=== PATIENT | male | born 1985 | race Caucasian/White ===

== ENCOUNTER 2016-07-12 20:07 | Emergency (ER) | payer MEDICAID ==
[2016-07-12] MEDS ORDERED: oxyCODONE/ACET 5/325 Prepack 4 PO STA (21:03)
[2016-07-12] MEDS ORDERED: HYDROmorphone 1 MG/ML SYRINGE IM STA (21:03)
[2016-07-12] MEDS ORDERED: predniSONE 20 MG TABLET PO STA (21:05)
[2016-07-12] MEDS ORDERED: predniSONE 20 MG TABLET ONE (21:12)
[2016-07-12] MEDS ORDERED: HYDROmorphone 1 MG/ML SYRINGE ONE (21:12)
[2016-07-12] MEDS ORDERED: oxyCODONE/ACET 5/325 Prepack 4 PO ONE (21:19)
== END 2016-07-12 21:26 | disposition home or self-care (01) ==
DX: M54.12 Radiculopathy, cervical region (principal); R03.0 Elevated blood-pressure reading, without diagnosis of hypertension; F17.200 Nicotine dependence, unspecified, uncomplicated
CPT/HCPCS: 96372; 99283; J1170; J7512

== ENCOUNTER 2019-04-16 10:05 | Emergency (ER) | payer MEDICAID ==
[2019-04-16 10:12] VITALS: BP 123/77
--- NOTE | 2019-04-16 11:09 | XRAY Report ---
Reason: right hand injury Procedure Date: 04/16/2019 Accession Number: [id number] / [id number] Procedure: XR - Hand 3 View RT CPT Code: FULL RESULT: EXAM: RIGHT HAND RADIOGRAPHY EXAM DATE: 04/16/2019 10:31 AM. CLINICAL HISTORY: Right hand injury. COMPARISON: None. TECHNIQUE: 3 views. FINDINGS: Bones: Mildly comminuted right fifth metacarpal neck fracture with 30 degrees of volar angulation Joints: Normal. No subluxations. Soft Tissues: Mild dorsal medial right hand swelling. IMPRESSION: 1. Mildly comminuted right fifth metacarpal neck fracture with 30 degrees of volar angulation. 2. No dislocation. 3. Mild dorsomedial right hand swelling. RADIA
--- NOTE | 2019-04-16 11:14 | ED Physician Documentation ---
PD HPI UPPER EXT INJURY - Stated complaint Stated Complaint: RT HAND PX/ INJ - Chief complaint Chief Complaint: Trauma Ext - History obtained from History obtained from: Patient, Family - History of Present Illness Location: Right, Hand Type of injury: Fall Where injury occurred: Home Timing - onset: How many hours ago (2) Timing - duration: Hours (2) Timing - details: Abrupt onset, Still present Improved by: Rest, Immobilization Worsened by: Moving, Palpating Associated symptoms: Swelling Contributing factors: No: Anticoagulated Similar symptoms before: Has not had sx before Recently seen: Not recently seen - Additonal information Additional information: 34-year-old male had a fall this morning and fell onto his right hand injuring the knuckle of the right fifth. He has some swelling and pain associated with this. Review of Systems Constitutional: denies: Fever Respiratory: denies: Cough GI: denies: Vomiting, Diarrhea Musculoskeletal: reports: Extremity pain, Joint pain, Joint swelling Neurologic: denies: Generalized weakness, Focal weakness, Numbness PD PAST MEDICAL HISTORY - Past Medical History Past Medical History: Yes Other Past Medical History: Chronic neck pain - Past Surgical History Past Surgical History: Yes Ortho: Rotator cuff repair - Present Medications Home Medications: Ambulatory Orders Medication Instructions Recorded Confirmed oxyCODONE [Roxicodone] 5 mg PO BID 04/16/19 04/16/19 - Allergies Allergies/Adverse Reactions: Allergies Allergy/AdvReac Type Severity Reaction Status Date / Time No Known Drug Allergies Allergy Verified 04/16/19 10:09 - Social History Does the pt smoke?: Yes Smoking Status: Current every day smoker Does the pt drink ETOH?: No Does the pt have substance abuse?: No - Immunizations Immunizations are current?: Yes - POLST Patient has POLST: Yes PD ED PE NORMAL - Vitals Vital signs reviewed: Yes (normal ) - General General: Alert and oriented X 3, No acute distress, Well developed/nourished - HEENT HEENT: Atraumatic, PERRL, EOMI - Respiratory Respiratory: No respiratory distress - Derm Derm: Normal color, Warm and dry, No rash - Extremities Extremities: Other (There is swelling and point tenderness to the right 5th distal metacarpal. distal n/v intact. ) - Neuro Neuro: Alert and oriented X 3, operator 2-12 intact, No motor deficit, No sensory deficit, Normal speech Eye Opening: Spontaneous Motor: Obeys Commands Verbal: Oriented GCS Score: 15 - Psych Psych: Normal mood, Normal affect Results - Vitals Vitals: Vital Signs - 24 hr 04/16/19 10:09 Temperature 36.8 C Heart Rate 85 Respiratory 16 Rate Blood Pressure 123/77 O2 Saturation 100 Oxygen O2 Source Room air - Rads (name of study) hand Radiology: Prelim report reviewed (Impression: 1. Mildly comminuted right fifth metacarpal neck fracture with 30 degrees of volar angulation. 2. No dislocation. 3. Mild posterior medial right hand swelling.), EMP read indepedently, See rad report Procedures - Splint (location) right hand Splint applied by: Tech Type of splint: Fiberglass, Ulnar gutter Other: Patient tolerated well, No complications, Neurovascular intact, Good alignment PD MEDICAL DECISION MAKING - ED course Complexity details: reviewed results, re-evaluated patient, considered differential, d/w patient, d/w family ED course: 34-year-old male with 1/5 metacarpal fracture is placed into an ulnar ulnar gutter splint and will follow-up with orthopedics. Departure - Departure Disposition: 01 Home, Self Care Clinical Impression: Mairaer's metacarpal fracture, neck, closed Qualifiers: Encounter type: initial encounter Qualified Code(s): S62.339A - Displaced fracture of neck of unspecified metacarpal bone, initial encounter for closed fracture Condition: Stable Instructions: ED Ellyn Jaylin Follow-Up: [facility] [Provider Group]
== END 2019-04-16 11:44 | disposition home or self-care (01) ==
LOC: ED 10:05
DX: F17.200 Nicotine dependence, unspecified, uncomplicated (principal); S62.626A Displaced fracture of middle phalanx of right little finger, initial encounter for closed fracture; W19.XXXA Unspecified fall, initial encounter; W22.8XXA Striking against or struck by other objects, initial encounter; Y92.009 Unspecified place in unspecified non-institutional (private) residence as the place of occurrence of the external cause
CPT/HCPCS: 29125; 99282; 99283

== ENCOUNTER 2019-09-05 13:17 | Outpatient (CLI) | payer SELFPAY | END 2019-09-05 13:18 | disposition home or self-care (01) | LOC: COV 13:17 | PROVIDERS: ATTEND Family Medicine | DX: R05 Cough (principal); R50.9 Fever, unspecified; Z20.828 Contact with and (suspected) exposure to other viral communicable diseases | CPT/HCPCS: 81599 ==

== ENCOUNTER 2021-01-06 15:17 | Emergency (ER) | payer SELFPAY ==
--- NOTE | 2021-01-06 15:57 | XRAY Report ---
PROCEDURE: Foot 3 View LT INDICATIONS: Trauma TECHNIQUE: 3 views of the foot were acquired. COMPARISON: None FINDINGS: Bones: No fractures or dislocations. No suspicious bony lesions. Soft tissues: No tibiotalar joint effusion. Achilles tendon appears normal. IMPRESSION: No visualized acute fracture or dislocation. However, occult injury cannot be excluded. Recommend kaylin rt interval imaging follow-up in 7-10 days as clinically indicated for additional evaluation. Reviewed by: Dotty Zuleta MD on 01/06/2021 3:55 PM PDT Approved by: Dotty Zuleta MD on 01/06/2021 3:55 PM PDT Station ID: [id number]
--- NOTE | 2021-01-06 17:34 | ED Physician Documentation ---
PD HPI LOWER EXT INJURY - Stated complaint Stated Complaint: LEFT TOE PX - Chief complaint Chief Complaint: Ext Problem - History obtained from History obtained from: Patient - History of Present Illness PD HPI LOW EXT INJURY LOCATION: Left, Toe (great) Type of injury: Blunt / blow (she stepped on a toy and felt pain at base of great toe.) Timing - onset: Today Associated symptoms: Swelling (near base of toe.). No: Weakness, Numbness Review of Systems Skin: denies: Abrasion (s), Laceration (s) Neurologic: denies: Focal weakness, Numbness PD PAST MEDICAL HISTORY - Past Medical History Past Medical History: No - Past Surgical History Past Surgical History: Yes Ortho: Rotator cuff repair - Present Medications Home Medications: Ambulatory Orders Medication Instructions Recorded Confirmed oxyCODONE [Roxicodone] 5 mg PO BID 04/16/19 04/16/19 - Allergies Allergies/Adverse Reactions: Allergies Allergy/AdvReac Type Severity Reaction Status Date / Time No Known Drug Allergies Allergy Verified 01/06/21 15:29 - Social History Does the pt smoke?: Yes Smoking Status: Current every day smoker Does the pt drink ETOH?: No Does the pt have substance abuse?: No - Immunizations Immunizations are current?: Yes - POLST Patient has POLST: Yes PD ED PE NORMAL - Vitals Vital signs reviewed: Yes - General General: Alert and oriented X 3, No acute distress, Well developed/nourished - Derm Derm: Normal color, Warm and dry - Neuro Neuro: No motor deficit, No sensory deficit Results - Vitals Vitals: Oxygen O2 Source Room air - Rads (name of study) left foot Radiology: Prelim report reviewed (no fractures), See rad report PD MEDICAL DECISION MAKING - ED course Complexity details: reviewed results, considered differential, d/w patient Departure - Departure Disposition: 01 Home, Self Care Clinical Impression: Sprain of great toe of left foot Qualifiers: Encounter type: initial encounter Qualified Code(s): S93.502A - Unspecified sprain of left great toe, initial encounter Condition: Stable Record reviewed to determine appropriate education?: Yes Instructions: ED Sprain Foot Comments: So theNo fractures on x-ray. Presume a sprain and bruising of the toe. Tylenol or ibuprofen as needed for pains. Activity as tolerated. Firm soled shoe may be more helpful to provide support. I would anticipate improvement over the next several days or so. Recheck if persistent or other problems. Discharge Date/Time: 01/06/21 17:49
[2021-01-06 17:50] VITALS: BP 128/80
== END 2021-01-06 17:49 | disposition home or self-care (01) ==
LOC: ED 15:17
DX: S93.502A Unspecified sprain of left great toe, initial encounter (principal); W22.8XXA Striking against or struck by other objects, initial encounter; F17.200 Nicotine dependence, unspecified, uncomplicated
CPT/HCPCS: 99282; 99283

== ENCOUNTER 2021-06-07 07:09 | Outpatient (CLI) | payer SELFPAY | END 2021-06-07 07:10 | disposition EMS.NT | LOC: EMS 07:09 | DX: Z04.1 Encounter for examination and observation following transport accident (principal) ==

== ENCOUNTER 2021-06-07 10:14 | Emergency (ER) | payer OTHER ==
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
[2021-06-07] MEDS ORDERED: ACETAMINOPHEN 325 MG TABLET PO STA (11:08)
[2021-06-07] MEDS ORDERED: IBUPROFEN 600 MG TABLET PO STA (11:08)
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
[2021-06-07] MEDS ORDERED: HYDROcod/ACETAM 5/325 MG TABLET PO STA (11:31)
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
[2021-06-07 12:06] VITALS: BP 116/74
== END 2021-06-07 12:06 | disposition home or self-care (01) ==
LOC: ED 10:14
DX: S01.01XA Laceration without foreign body of scalp, initial encounter (principal); S62.363A Nondisplaced fracture of neck of third metacarpal bone, left hand, initial encounter for closed fracture; S16.1XXA Strain of muscle, fascia and tendon at neck level, initial encounter; V47.0XXA Car driver injured in collision with fixed or stationary object in nontraffic accident, initial encounter; F17.200 Nicotine dependence, unspecified, uncomplicated
CPT/HCPCS: 12002; 29125; 72125; 73110; 73130; 99283; 99284; A9270

== ENCOUNTER 2021-06-24 14:00 | Outpatient (CLI) | payer OTHER ==
--- NOTE | 2021-06-24 19:57 | XRAY Report ---
PROCEDURE: Hand 3 View LT INDICATIONS: L HAND PX TECHNIQUE: 3 views of the hand(s) acquired. COMPARISON: Hand and wrist x-ray 06/07/2021 FINDINGS: Bones: There is a stable appearance of distal third metacarpal fracture. Alignment is unchanged. No s uspicious bony lesions. Soft tissues: No suspicious soft tissue calcifications. IMPRESSION: Stable distal third metacarpal fracture. Reviewed by: Dotty Zuleta MD on 06/24/2021 7:55 PM [facility] Approved by: Dotty Zuleta MD on 06/24/2021 7:55 PM PST Station ID: [id number]
== END 2021-06-24 23:59 | disposition home or self-care (01) ==
LOC: DI.N 14:00
PROVIDERS: ATTEND Orthopaedic Surgery
DX: S62.303A Unspecified fracture of third metacarpal bone, left hand, initial encounter for closed fracture (principal)

== ENCOUNTER 2021-07-02 08:00 | Outpatient (CLI) | payer SELFPAY | END 2021-07-02 23:59 | LOC: LAB.N 08:00 | PROVIDERS: ATTEND Physician Assistant | DX: J06.9 Acute upper respiratory infection, unspecified (principal); Z20.822 Contact with and (suspected) exposure to COVID-19 ==

== ENCOUNTER 2021-07-08 12:11 | Outpatient (CLI) | payer OTHER ==
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
== END 2021-07-08 12:12 | disposition home or self-care (01) ==
LOC: DI.WOS 12:11
PROVIDERS: ATTEND Orthopaedic Surgery
DX: S62.332D Displaced fracture of neck of third metacarpal bone, right hand, subsequent encounter for fracture with routine healing (principal)

== ENCOUNTER 2021-07-22 12:51 | Outpatient (CLI) | payer OTHER ==
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
== END 2021-07-22 12:52 | disposition home or self-care (01) ==
LOC: DI.WOS 12:51
PROVIDERS: ATTEND Physician Assistant
DX: S62.333D Displaced fracture of neck of third metacarpal bone, left hand, subsequent encounter for fracture with routine healing (principal)